=== PATIENT | female | born 1980 | race African-American/Black ===

== ENCOUNTER 2020-07-23 12:30 | Emergency (ER) | payer BC, MEDICAID, OTHER ==
[2020-07-23 13:04] VITALS: BP 136/99
[2020-07-23] MEDS ORDERED: IBUPROFEN 800 MG TABLET PO ONE (13:49)
--- NOTE | 2020-07-23 13:54 | ER Document Report ---
ED Extremity Problem, Lower - General Chief Complaint: Foot Pain Stated Complaint: LEFT FOOT PAIN Time Seen by Provider: 07/23/20 13:44 Primary Care Provider: LUIS SANDOVAL MD [ACTIVE STAFF] - Follow up as needed - HPI Notes: Patient is a 40 y/o female who presents with left foot pain that began two days ago. Patient states the majority of her pain is located to the lateral aspect of her foot and ankle. She denies any recent injury or fall. 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 She reports medial ankle and foot pain for the past couple of months but became concerned when her lateral foot began to hurt. She has been wearing an ankle brace with some relief. She denies taking any pain medication today. She denies any other symptoms or complaints. Past Medical History - General Information source: Patient - Social History Smoking Status: Unknown if Ever Smoked Family History: Reviewed & Not Pertinent Review of Systems - Review of Systems Constitutional: No symptoms reported EENT: No symptoms reported Cardiovascular: No symptoms reported Respiratory: No symptoms reported Gastrointestinal: No symptoms reported Genitourinary: No symptoms reported Female Genitourinary: No symptoms reported Musculoskeletal: See HPI Skin: No symptoms reported Hematologic/Lymphatic: No symptoms reported Neurological/Psychological: No symptoms reported Physical Exam - Vital signs Vitals: Temp Pulse Resp BP Pulse Ox 98.4 F 88 18 136/99 H 100 07/23/20 13:04 07/23/20 13:04 07/23/20 13:04 07/23/20 13:04 07/23/20 13:04 - Notes Notes: PHYSICAL EXAMINATION: GENERAL: Well-appearing, well-nourished and in no acute distress. HEAD: Atraumatic, normocephalic. EYES: sclera anicteric, conjunctiva are normal. ENT: Moist mucous membranes. NECK: Normal range of motion LUNGS: Normal work of breathing HEART: 2+ radial pulses bilaterally EXTREMITIES: Left ankle and foot nontender with no visible swelling, ecchymosis, or deformity. Full range of motion of the left ankle. 5 out of 5 strength and sensation intact. 2+ DP and PT pulses on the left side. No pitting or edema. No cyanosis. NEUROLOGICAL: No focal neurological deficits. Moves all extremities spontaneously and on command. PSYCH: Normal mood, normal affect. SKIN: Warm, Dry, normal turgor, no rashes or lesions noted. Course - Re-evaluation Re-evalutation: Patient is a 40-year-old female with left ankle pain that began 2 days ago. Vital signs are within normal limits. On exam, left ankle and foot nontender with no visible swelling, ecchymosis, or deformity. Full range of motion of the left ankle. Left foot x-ray shows no acute osseous abnormality of the left foot. Mild Achilles and moderate plantar calcaneal enthesopathy. The enthe sopathy seen is consistent with her job and standing on her feet all day, however, it doesn't fully explain her symptoms which is why I believe follow up with orthopedics is the next best step in her treatment. Patient placed in ankle stirrup and crutches here in the ED. She was instructed to take ibuprofen and tylenol as needed for pain. Return precautions and follow up instructions given. Patient understands and is in agreement with the plan. Patient will be discharged home. - Vital Signs Vital signs: Temp Pulse Resp BP Pulse Ox 98.4 F 88 18 136/99 H 100 07/23/20 13:04 07/23/20 13:04 07/23/20 13:04 07/23/20 13:04 07/23/20 13:04 - Laboratory Results Critical Laboratory Results Reviewed: No Critical Results - Radiology Results Radiology Results Interpreted: Foot X-Ray 07/23/20 13:48 IMPRESSION: No acute osseous abnormality of the left foot. Mild Achilles and moderate plantar calcaneal enthesopathy. Critical Radiology Results Reviewed: No Critical Results Procedures - Immobilization Left Lateral Foot Pre-Proc Neuro Vasc Exam: Normal Immobilizer type: Ankle stirrup, Crutches Performed by: PCT Post-Proc Neuro Vasc Exam: Normal Discharge - Discharge Clinical Impression: Pain in left ankle and joints of left foot Condition: Stable Disposition: HOME, SELF-CARE Instructions: Ankle Stirrup Splint ([facility]), Use of Crutches ([facility]) Additional Instructions: Take ibuprofen and tylenol as needed for pain. Make sure to take the medication as stated on the bottle and to not exceed the maximum dosage. Follow up with orthopedics for further evaluation of your left foot pain. Return to the emergency department if your symptoms worsen or if you develop redness, warmth, or swelling to the foot or if you develop calf pain and swelling, chest pain or shortness of breath. Forms: Return to Work Referrals: LUIS SANDOVAL MD [ACTIVE STAFF] - Follow up as needed
--- NOTE | 2020-07-23 14:12 | RADIOLOGY REPORT (SQ) ---
EXAM DESCRIPTION: FOOT LEFT COMPLETE IMAGES COMPLETED DATE/TIME: 07/23/2020 1:59 pm REASON FOR STUDY: left foot pain COMPARISON: None. NUMBER OF VIEWS: Three views. TECHNIQUE: AP, lateral and oblique radiographic images acquired of the left foot. LIMITATIONS: None. FINDINGS: MINERALIZATION: Normal. BONES: No acute fracture or dislocation. No worrisome bone lesions. Mild Achilles and moderate plan tar calcaneal enthesopathy. JOINTS: No effusions. SOFT TISSUES: No soft tissue swelling. No foreign body. OTHER: No other significant finding. IMPRESSION: No acute osseous abnormality of the left foot. Mild Achilles and moderate plantar calcaneal enthesopathy. TECHNICAL DOCUMENTATION: JOB ID: [id number] 2010 [employer]- All Rights Reserved Reading location - IP/workstation name: [email or web address]
== END 2020-07-23 15:03 | disposition home or self-care (01) ==
LOC: ER 12:30
DX: M77.8 Other enthesopathies, not elsewhere classified (principal); M25.572 Pain in left ankle and joints of left foot
CPT/HCPCS: 99283